=== PATIENT | male | born 1965 | race Caucasian/White ===

== ENCOUNTER 2020-01-24 09:27 | Emergency (ER) | payer SELFPAY ==
[~2020-01-24] VITALS: Ht 162.6 cm; Wt 90.0 kg
--- NOTE | 2020-01-24 10:21 | PHYS DOC ---
Past Medical History Past Medical History: Cancer, Hypertension Additional Past Medical Histor: colon and bladder cancer 9 years ago Past Surgical History: No Surgical History Smoking Status: Current Some Day Smoker Alcohol Use: Occasionally General Adult EDM: Chief Complaint: UPPER EXTREMITY SWELLING HPI: HPI: Patient is a 54-year-old male presents with a right thumb problem. He states he hit his thumb on something Thursday night and since that time is been increasingly red and swollen he denies any fever chills or sweats. He states he does not think he hit it hard enough to break it. He denies any other injuries or issues at this time. [] Review of Systems: Review of Systems: Constitutional: Denies fever or chills. [] Eyes: Denies change in visual acuity. [] HENT: Denies nasal congestion or sore throat. [] Respiratory: Denies cough or shortness of breath. [] Cardiovascular: Denies chest pain or edema. [] GI: Denies abdominal pain, nausea, vomiting, bloody stools or diarrhea. [] : Denies dysuria. [] Musculoskeletal: Per HPI. [] Integument: Denies rash. [] Neurologic: Denies headache, focal weakness or sensory changes. [] Endocrine: Denies polyuria or polydipsia. [] Lymphatic: Denies swollen glands. [] Psychiatric: Denies depression or anxiety. [] Heart Score: Risk Factors: Risk Factors: DM, Current or recent (<one month) smoker, HTN, HLP, family history of CAD, obesity. Risk Scores: Score 0 - 3: 2.5% MACE over next 6 weeks - Discharge Home Score 4 - 6: 20.3% MACE over next 6 weeks - Admit for Clinical Observation Score 7 - 10: 72.7% MACE over next 6 weeks - Early Invasive Strategies Allergies: Allergies: Allergies Coded Allergies Type Severity Reaction Last Updated Verified Penicillins Allergy Unknown 01/24/20 Yes Physical Exam: PE: Constitutional: Well developed, well nourished, no acute distress, non-toxic appearance. [] HENT: Normocephalic, atraumatic, bilateral external ears normal, oropharynx moist, no oral exudates, nose normal. [] Eyes: PERRLA, EOMI, conjunctiva normal, no discharge. [] Neck: Normal range of motion, no tenderness, supple, no stridor. [] Cardiovascular:Heart rate regular rhythm, no murmur [] Lungs & Thorax: Bilateral breath sounds clear to auscultation [] Abdomen: Bowel sounds normal, soft, no tenderness, no masses, no pulsatile masses. [] Skin: Warm, dry, no erythema, no rash. [] Back: No tenderness, no CVA tenderness. [] Extremities: The right first PIP swollen and erythematous decreased range of motion secondary to pain appears to be an acute arthritis. [] Neurologic: Alert and oriented X 3, normal motor function, normal sensory function, no focal deficits noted. [] Psychologic: Affect normal, judgement normal, mood normal. [] Current Patient Data: Vital Signs: Vital Signs Date Time Temp Pulse Resp B/P (MAP) Pulse Ox O2 Delivery O2 Flow Rate FiO2 01/24/20 09:30 97.8 100 16 175/106 (129) 97 Room Air 97.8 EKG: EKG: [] Radiology/Procedures: Radiology/Procedures: [] Impression: PROCEDURE: HAND RIGHT 3V HAND RIGHT 3V DATE: 01/24/2020 9:59 AM INDICATION: Thumb injury, pain, swelling COMPARISON: None. FINDINGS: Bones: There is no evidence of acute fracture or dislocation. Chronic healed fourth and fifth metacarpal fractures. Chronic third proximal phalanx fracture. Joints: The joint spaces are normal. Miscellaneous: Soft tissue fullness along the base of the first digit IMPRESSION: No evidence of acute fracture. Course & Med Decision Making: Course & Med Decision Making Pertinent Labs and Imaging studies reviewed. (See chart for details) [] Dragon Disclaimer: Gerard Disclaimer: This electronic medical record was generated, in whole or in part, using a voice recognition dictation system. Departure Departure Impression: Primary Impression: Gout of right hand Qualified Codes: M10.9 - Gout, unspecified Disposition: 01 HOME, SELF-CARE Condition: STABLE Referrals: NO PCP (PCP) Patient Instructions: Gout Additional Instructions: Return to the emergency department with any new or concerning symptoms Scripts Hydrocodone/Apap 5-325 (NORCO 5-325 TABLET) 1 Each Tablet 1 TAB PO PRN Q6HRS PRN for PAIN, #12 TAB 0 Refills Prov: GERRY RICHARDS DO 01/24/20 Prednisone (PREDNISONE) 20 Mg Tablet 3 TAB PO DAILY PRN for COUGH, #15 TAB Prov: GERRY RICHARDS DO 01/24/20 GERRY RICHARDS DO Jan 24, 2020 10:21
[2020-01-24] MEDS ORDERED: predniSONE 20 MG TABLET PO ONE (10:30)
[2020-01-24] MEDS ORDERED: HYDR-3164 PO (10:32)
[2020-01-24] MEDS ORDERED: PRED20TA PO (10:32)
[2020-01-24 10:35] VITALS: BP 144/90
== END 2020-01-24 10:55 | disposition home or self-care (01) ==
LOC: ER 09:27
DX: M10.9 Gout, unspecified (principal); M79.641 Pain in right hand; L53.9 Erythematous condition, unspecified; I10 Essential (primary) hypertension; F17.200 Nicotine dependence, unspecified, uncomplicated; Z85.51 Personal history of malignant neoplasm of bladder; Z88.0 Allergy status to penicillin
CPT/HCPCS: 73130; 99283; J7512

== ENCOUNTER 2020-01-28 08:38 | Emergency (ER) | payer SELFPAY ==
[~2020-01-28] VITALS: Ht 162.6 cm; Wt 84.2 kg
[~2020-01-28 08:38] MED LIST: HYDR-3164 PO; PRED20TA PO
[2020-01-28 08:50] VITALS: BP 158/101
--- NOTE | 2020-01-28 09:20 | PHYS DOC ---
Past Medical History Past Medical History: Cancer, Hypertension Additional Past Medical Histor: colon and bladder cancer 9 years ago Past Surgical History: No Surgical History Smoking Status: Current Some Day Smoker Alcohol Use: Occasionally General Adult EDM: Chief Complaint: THUMB HPI: HPI: Patient is a 54 year old right-handed male with history of hypertension and: Bladder cancer in 9 years ago who presents with complaining of right thumb injury and pain and swelling. Patient states he injured his right thumb while changing the clutch of his car on January 19 was seen in this emergency room on January 23 and had unremarkable x-ray of his finger and treated for gout with prednisone and hydrocodone but his finger getting more tenderness, edema and erythema with drainage of pus. Patient is very anxious at arrival to ER and repeated frequently I do not want to be in here. Review of Systems: Review of Systems: Constitutional: Denies fever or chills. [] Eyes: Denies change in visual acuity. [] HENT: Denies nasal congestion or sore throat. [] Respiratory: Denies cough or shortness of breath. [] Cardiovascular: Denies chest pain or edema. [] GI: Denies abdominal pain, nausea, vomiting, bloody stools or diarrhea. [] : Denies dysuria. [] Musculoskeletal: Denies back pain, reports joint pain. [] Integument: Denies rash. [] Neurologic: Denies headache, focal weakness or sensory changes. [] Endocrine: Denies polyuria or polydipsia. [] Lymphatic: Denies swollen glands. [] Psychiatric: Denies depression or anxiety. [] Heart Score: Risk Factors: Risk Factors: DM, Current or recent (<one month) smoker, HTN, HLP, family history of CAD, obesity. Risk Scores: Score 0 - 3: 2.5% MACE over next 6 weeks - Discharge Home Score 4 - 6: 20.3% MACE over next 6 weeks - Admit for Clinical Observation Score 7 - 10: 72.7% MACE over next 6 weeks - Early Invasive Strategies Current Medications: Current Medications Medications (Trade) Dose Ordered Sig/Raza Start Time Stop Time Status Last Admin Dose Admin Cefazolin Sodium/ Dextrose 50 ml @ 100 mls/hr 1X ONCE 01/28/20 09:15 01/28/20 09:44 Allergies: Allergies: Allergies Coded Allergies Type Severity Reaction Last Updated Verified Penicillins Allergy Unknown 01/24/20 Yes Physical Exam: PE: Constitutional: Well nourished, moderate distress, very anxious and agitated, non-toxic appearance. [] HENT: Normocephalic, atraumatic. Eyes: PERRLA, EOMI, conjunctiva normal, no discharge. [] Neck: Normal range of motion, no tenderness, supple, no stridor. [] Cardiovascular:Heart rate regular rhythm, no murmur [] Lungs & Thorax: Bilateral breath sounds clear to auscultation [] Extremities: Right first finger with severe edema and erythema and exfoliated skin with drainage of pus and volar side of first phalanx with severe tenderness Neurologic: Alert and oriented X 3, no focal deficits noted. [] Psychologic: Affect very agitated. EKG: EKG: [] Radiology/Procedures: Radiology/Procedures: [] Course & Med Decision Making: Course & Med Decision Making Evaluation of patient inertial 54-year-old right-handed male patient presented to ER with complaining of infection of right thumb with drainage of pus. Patient had large abscess of right thumb with severe edema and erythema and signs of infection with necrotic skin. After starting IV line patient decided to leave ER and even was not agreed to have IV antibiotic or prescription for antibiotic and signed AGAINST MEDICAL ADVICE. Patient was advised to return at any time that he feels better. Gerard Disclaimer: Gerard Disclaimer: This electronic medical record was generated, in whole or in part, using a voice recognition dictation system. Departure Departure Impression: Primary Impression: Abscess of right thumb Additional Impression: Left against medical advice Disposition: 07 AGAINST MEDICAL ADVICE (At 0918) Condition: GUARDED Referrals: NO PCP (PCP) NESSA PRABHAKAR MD Jan 28, 2020 09:20
[2020-01-28] MEDS ORDERED: ceFAZolin 2GM PREMIX 2 GM/50 ML BAG IV ONE (10:00)
== END 2020-01-28 09:18 | disposition left against medical advice (07) ==
LOC: ER 08:38
DX: L02.511 Cutaneous abscess of right hand (principal); I10 Essential (primary) hypertension; F17.200 Nicotine dependence, unspecified, uncomplicated; Z88.0 Allergy status to penicillin
CPT/HCPCS: 99283; J0696; 99281